=== PATIENT | female | born 1990 | race Caucasian/White ===

== ENCOUNTER 2019-02-19 13:12 | Emergency (ER) | payer OTHER ==
[~2019-02-19] VITALS: Ht 177.8 cm; Wt 68.0 kg
[~2019-02-19 13:12] MED LIST: ADVIL200 MG PO; DARVOCET-N 1001 EACH PO; DOXYCYCLINE 10100 MG PO; FLAGYL500 MG PO; MACROBID 100 M100 M1 PO; NOHOMEMEDICATIONS; NORCO 5-325 TA1 EACH PO; PYRIDIUM100 M1 PO; ZOFRAN ODT4 MG PO
[2019-02-19 13:50] LABS: ABSOLUTE EOSINOPHILS 0.1 thou/uL (0.0-0.7); ABSOLUTE LYMPHOCYTES 1.7 thou/uL (0.8-5.3); ABSOLUTE MONOCYTES 0.4 thou/uL (0.0-1.2); ABSOLUTE NEUTROPHILS 3.5 thou/uL (1.6-8.1); BASOPHILS 0.5 %; EOSINOPHILS 1.1 %; HEMATOCRIT 43.5 % (37.0-47.0); HEMOGLOBIN 15.2 gm/dL (12.0-15.0); LYMPHOCYTES 29.3 %; MCH 31.3 pg (26.0-34.0); MCHC 34.9 g/dL (28.0-37.0); MCV 89.5 fL (80.0-100.0); MONOCYTES 7.6 %; NUCLEATED RBCS 0 /100WBC; PLATELET COUNT* 296 thou/uL (150-400); POLYS 61.5 %; RBC 4.86 mil/uL (4.20-5.00); RDW-CV 13.1 % (10.5-14.5); WBC 5.8 thou/uL (4.0-11.0)
[2019-02-19 13:58] LABS: CALCIUM 9.3 mg/dL (8.5-10.1); CREATININE 1.1 mg/dL (0.6-1.3); POTASSIUM 3.7 mmol/L (3.5-5.1)
[2019-02-19 14:09] LABS: ALBUMIN 4.2 g/dL (3.4-5.0); TOTAL BILIRUBIN 0.3 mg/dL (<0.1-1.0); TOTAL PROTEIN 7.6 g/dL (6.4-8.2)
[2019-02-19 15:16] VITALS: BP 119/82
--- NOTE | 2019-02-21 11:25 | EKG ---
[place] [address] ELECTROCARDIOGRAM REPORT Name: MERNA ESTRADA [id number] Admission: 02/19/19 Attend Phys: Discharge: 02/19/19 Date of : 89 Report #: [id number] THIS REPORT FOR: //name// [facility] ED Test Date: 2019-02-19 Test Time: 13:19:45 Pat Name: MERNA ESTRAAD Department: Room: Gender: F [employer] Tender: MARY JO : 1990 Requested By: Edgar Maldonado Order Number: [id number] MD: Jose A Brown Measurements Intervals [place] Rate: 101 P: 70 CO: 142 QRS: 101 QRSD: 88 T: 59 QT: 346 QTc: 449 Interpretive Statements Sinus tachycardia Borderline right axis deviation No previous ECG available for comparison Electronically Signed On 02-21-2019 11:25:27 [employer] by Jose A Brown [email or web address] <ELECTRONICALLY SIGNED> By: Jose A Brown MD, [facility] 02/21/19 1125 1319 1319 Jose A Brown MD, FACC /EPI
== END 2019-02-19 15:18 | disposition home or self-care (01) ==
LOC: M.ERS 13:12
PROVIDERS: Emergency Medicine Emergency Medical Services
DX: R07.89 Other chest pain (principal); Z88.6 Allergy status to analgesic agent; Z88.5 Allergy status to narcotic agent; Z88.8 Allergy status to other drugs, medicaments and biological substances; Z87.440 Personal history of urinary (tract) infections; Z90.49 Acquired absence of other specified parts of digestive tract